=== PATIENT | male | born 1960 | race Caucasian/White ===

== ENCOUNTER 2018-02-13 15:46 | Emergency (ER) | payer OTHER ==
[2018-02-13 16:09] VITALS: BP 172/103
[2018-02-13] MEDS ORDERED: Cephalexin 500 MG Cap PO ONE (17:32)
--- NOTE | 2018-02-13 17:40 | EDM.PDOC ---
ED HPI GENERAL MEDICAL PROBLEM - General Chief Complaint: Upper Extremity Injury/Pain Stated Complaint: LEFT MIDDLE FINGER INJURY Time Seen by Provider: 02/13/18 16:15 Source of Information: Reports: Patient History Limitations: Reports: No Limitations - History of Present Illness INITIAL COMMENTS - FREE TEXT/NARRATIVE: Patient is a 57 year old male who presents to the E.D. complaining pain to the distal phalanx of the left third finger. Patient was cutting materials on a miter saw when the product he was holding rolled causing his finger to hit the back of the saw area. States this happened two days ago. Attempted to evacuate the blood from under the nail with a hot needle with no luck. Bruising has been noted to the affected area. Pain with palpation noted. He has previous injury to the tip of the affected finger causing what appears to be a mallet finger. This is unchanged. Otherwise he offers no additional complaints. Left 3-Middle finger Pain Score (Numeric/FACES): 5 - Related Data Allergies Allergy/AdvReac Type Severity Reaction Status Date / Time ibuprofen [From Motrin] Allergy Hives Verified 02/13/18 17:49 levofloxacin [From Levaquin] AdvReac Shaking Verified 02/14/18 11:40 Home Meds: Home Meds Cider Vinegar [Apple Cider Vinegar] 1,000 mg PO DAILY 12/29/14 [History] Hydrochlorothiazide 25 mg PO DAILY 12/29/14 [History] Lisinopril 40 mg PO DAILY 12/29/14 [History] Albuterol [Proventil HFA] 2 puff INH Q4H PRN #1 inhaler 12/30/14 [Rx] Past Medical History Cardiovascular History: Reports: Hypertension Respiratory History: Reports: Other (See Below) Other Respiratory History: reactive airway Social & Family History - Family History Family Medical History: Noncontributory - Tobacco Use Smoking Status *Q: Never Smoker - Recreational Drug Use Recreational Drug Use: No Review of Systems - Review of Systems Review Of Systems: ROS reveals no pertinent complaints other than HPI. ED EXAM, GENERAL - Physical Exam Exam: See Below Exam Limited By: No Limitations General Appearance: Alert, WD/WN, No Apparent Distress Eye Exam: Bilateral Eye: PERRL Ears: Hearing Grossly Normal Nose: Normal Inspection Throat/Mouth: Normal Voice, No Airway Compromise Head: Atraumatic, Normocephalic Neck: Normal Inspection, Supple Respiratory/Chest: No Respiratory Distress, No Accessory Muscle Use Cardiovascular: Normal Peripheral Pulses, Regular Rate, Rhythm Peripheral Pulses: 4+: Radial (L) Neurological: Alert, Oriented, CN II-XII Intact, Normal Cognition, No Motor/ Sensory Deficits Psychiatric: Normal Affect, Normal Mood Skin Exam: Warm, Dry, Intact, Ecchymosis (to the distal phalanx of the left 3rd finger. hematoma under the nail bed. ) Course - Vital Signs Last Recorded V/S: Last Vital Signs Temp 98.4 F 02/13/18 16:06 Pulse 72 02/13/18 16:06 Resp 16 02/13/18 16:06 BP 172/103 H 02/13/18 16:06 Pulse Ox 97 02/13/18 16:06 - Orders/Labs/Meds Meds: Medications Discontinued Medications Generic Name Dose Route Start Last Admin Trade Name Freq PRN Reason Stop Dose Admin Cephalexin 500 mg 02/13/18 17:32 02/13/18 17:48 Keflex PO 02/13/18 17:33 500 mg ONETIME ONE Administration - Re-Assessments/Exams Free Text/Narrative Re-Assessment/Exam: On x-ray patient has a fracture to the distal phalanx with no malalignment. Fracture is under the nailbed. Patient did report attempting to evacuate the blood underneath the nailbed with a hot needle. Thus we'll treat the patient for an open fracture. Keflex as ordered 500 mg by mouth. Splint applied per nursing staff. Will discharge patient home with instructions as documented. Departure - Departure Time of Disposition: 17:40 Disposition: Home, Self-Care 01 Condition: Good Clinical Impression: Phalanx, distal fracture of finger Qualifiers: Encounter type: initial encounter Finger: middle finger Fracture type: open Fracture alignment: nondisplaced Laterality: left Qualified Code(s): S62.663B - Nondisplaced fracture of distal phalanx of left middle finger, initial encounter for open fracture - Discharge Information Instructions: Finger Fracture, [id number], Cast or Splint Care, Adult Referrals: Anel Hendrix MD [Primary Care Provider] - Forms: ED Department Discharge Additional Instructions: You have a open fracture to the affected finger. Take the full course of the keflex as prescribed. keep splint in place for the next 6 wks. Followup with orthopedic surgeon in the next 1 to 2 wks for reevaluation. Take ibuprofen and tylenol in alternating fashion for pain. Apply ice to the affected area as needed throughout the day for pain. Elevate when able to reduce any swelling and pain. Refrain from any activities that cause worsening pain. Return to the E.D. if you develop any new or worsening symptoms.
--- NOTE | 2018-02-14 10:10 | CR ---
Left third finger: Four views centered to the left third finger were obtained. Comparison: No previous exam. Very minimal fracture is noted within the tuft of the distal phalanx of the third finger. Soft tissue swelling is seen. No additional bony abnormality is noted. Metallic foreign body is projected within the soft tissues between the first and second digit. Impression: 1. Minimal tuft fracture as noted above. 2. Soft tissue swelling. 3. Small metallic foreign body which is most likely chronic. Diagnostic code #3
== END 2018-02-13 18:00 | disposition home or self-care (01) ==
LOC: JD.ED 15:46
DX: S62.663B Nondisplaced fracture of distal phalanx of left middle finger, initial encounter for open fracture (principal); I10 Essential (primary) hypertension; Z88.6 Allergy status to analgesic agent; Z88.1 Allergy status to other antibiotic agents; Z79.899 Other long term (current) drug therapy; W27.0XXA Contact with workbench tool, initial encounter
CPT/HCPCS: 73140; 99283; A9270

== ENCOUNTER 2019-11-13 10:18 | Emergency (ER) | payer BC, OTHER ==
[2019-11-13 10:32] VITALS: BP 188/113; PULSE 115
--- NOTE | 2019-11-13 11:58 | EDM.PDOC ---
ED HPI GENERAL MEDICAL PROBLEM - General Chief Complaint: Respiratory Problem Stated Complaint: HIGH BP Time Seen by Provider: 11/13/19 11:04 Source of Information: Reports: Patient, Family (, [id number]) History Limitations: Reports: No Limitations - History of Present Illness INITIAL COMMENTS - FREE TEXT/NARRATIVE: Mr. Galvan is a very pleasant 59-year-old man with a past medical history significant for obesity, untreated prediabetes, hypertension, dyslipidemia, and an essential tremor, who now presents to the ED with a concern about evaded blood pressure in the setting of a cough. He states that he has not been feeling well for the past couple of weeks, and believes that it may be caused by his elevated blood pressure. He has been checking his blood pressure numerous times per day - at least 5 or 6 -and all of them have been elevated. He states that he has a chronic cough, usually nonproductive, however, it has been considerably worse than usual for the past 2 weeks, when it became productive of greenish/yellowish sputum. He has had wheezing. He has noticed that both his cough and wheezing are worse if he is supine, therefore he has had to sleep sitting up. He states that he was seen by Samantha Cheung NP, at the walk-in clinic on Tuesday , 11/05/2019. He states that blood work and a chest x-ray were performed, and that he was told that all were okay. He does not know why, but he was prescribed doxycycline BID that he took until Tuesday evening, 11/10/2019, at which time he stopped it, because it was making him sick to his stomach. He was also seen by his PCP on , 11/08/2019. He states that no tests were performed, but that his blood pressure medication was increased. He was also started on Topamax, a new medication for his essential tremor, but that he discontinued that on 11/10/2019, as well, also because of nausea and vomiting. Patient also notes that he has had a sore under his tongue for the past 2 days, along with a swollen gland. While the patient's BP has still been elevated, he acknowledges that his cough appears to be reduced, now approaching normal for him. Here in the ED, the patient's initial BP was found to be elevated at 188/113, along with tachycardia of 115, and a low-grade fever of 100.9. His oxygen saturation is 97% on room air. The patient's PCP is Dr. Anel Jeter. He did not receive an influenza vaccine this season, and declined an offer to receive one here today. - Related Data Allergies Allergy/AdvReac Type Severity Reaction Status Date / Time ibuprofen [From Motrin] Allergy Hives Verified 11/13/19 10:32 levofloxacin [From Levaquin] AdvReac Shaking Verified 11/13/19 10:32 Home Meds: Home Meds Cider Vinegar [Apple Cider Vinegar] 1,000 mg PO DAILY 12/29/14 [History] Lisinopril 40 mg PO DAILY 12/29/14 [History] hydroCHLOROthiazide [Hydrochlorothiazide] 25 mg PO DAILY 12/29/14 [History] Albuterol [Proventil HFA] 2 puff INH Q4H PRN #1 inhaler 12/30/14 [Rx] Past Medical History Cardiovascular History: Reports: High Cholesterol, Hypertension Neurological History: Reports: Other (See Below) (Essential tremor) Endocrine/Metabolic History: Reports: Obesity/BMI 30+, Other (See Below) ( Prediabetes) - Past Surgical History HEENT Surgical History: Reports: Oral Surgery (wisdom teeth extraction) Social & Family History - Family History Family Medical History: Noncontributory - Tobacco Use Smoking Status *Q: Former Smoker Years of Tobacco use: 21 Packs/Tins Daily: 2.5 Month/Year Tobacco Last Used: Quit 1993 Second Hand Smoke Exposure: No - Alcohol Use Days Per Week of Alcohol Use: 7 Number of Drinks Per Day: 7 Total Drinks Per Week: 49 Alcohol Use Frequency: Daily (occasionally to excess) - Recreational Drug Use Recreational Drug Use: Yes Drug Use in Last 12 Months: Yes Recreational Drug Type: Reports: Marijuana/Hashish (smokes daily) - Living Situation & Occupation Living situation: Reports: , with Spouse 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 Respiratory: Reports: Cough (chronic, of unknown cause) ED EXAM, GENERAL - Physical Exam Exam: See Below Exam Limited By: No Limitations General Appearance: Alert, WD/WN, No Apparent Distress Eye Exam: Bilateral Eye: EOMI, Normal Inspection Ears: Normal External Exam, Normal Canal, Hearing Grossly Normal, Normal TMs Nose: Normal Inspection, No Blood, Other (Mild bilateral nasal mucosal edema) Throat/Mouth: Normal Inspection, Normal Lips, Normal Teeth, Normal Gums, Normal Oropharynx, Normal Voice, No Airway Compromise Head: Atraumatic, Normocephalic Neck: Normal Inspection, Supple, Non-Tender, Full Range of Motion. No: Lymphadenopathy (L), Lymphadenopathy (R) Respiratory/Chest: No Respiratory Distress, Lungs Clear, No Accessory Muscle Use , Decreased Breath Sounds (mild). No: Crackles, Rhonchi, Wheezing, Stridor, Prolonged Expiration Cardiovascular: Normal Peripheral Pulses, Regular Rate, Rhythm, No Edema, No Gallop, No JVD, No Murmur, No Rub Peripheral Pulses: 4+: Radial (L), Radial (R) GI/Abdominal: Normal Bowel Sounds, Soft, Non-Tender, No Organomegaly, No Distention, No Abnormal Bruit, No Mass (Male) Exam: Deferred Rectal (Males) Exam: Deferred Back Exam: Normal Inspection, Full Range of Motion, NT Extremities: Normal Inspection, Normal Range of Motion, No Pedal Edema, Normal Capillary Refill Neurological: Alert, Oriented, Normal Cognition, No Motor/Sensory Deficits Psychiatric: Normal Affect Skin Exam: Warm, Dry, Intact, Normal Color, No Rash EKG INTERPRETATION EKG Date: 11/13/19 Time: 10:52 Rhythm: NSR Rate (Beats/Min): 89 [place]: LAD-Left [place] Deviation (likely due to LAFB) P-Wave: Present QRS: Normal (Late transition) ST-T: Normal QT: Prolonged (QTc 490 ms) Comparison: NA - No Prior EKG Course - Vital Signs Last Recorded V/S: Last Vital Signs Temp 38.3 C H 11/13/19 10:30 Pulse 115 H 11/13/19 10:30 Resp 17 11/13/19 10:30 BP 188/113 H 11/13/19 10:30 Pulse Ox 97 11/13/19 10:30 - Orders/Labs/Meds Orders: Active Orders 24 hr Category Date Time Status EKG Documentation Completion [RC] ASDIRECTED Care 11/13/19 10:36 Active CULTURE BLOOD [BC] Stat Lab 11/13/19 10:42 Received CULTURE BLOOD [BC] Stat Lab 11/13/19 10:52 Received EKG 12 Lead [EK] Stat Ther 11/13/19 10:35 Ordered Labs: Laboratory Tests 11/13/19 11/13/19 11/13/19 Range/Units 10:42 10:42 10:42 WBC 7.23 (4.23-9.07) K/mm3 RBC 4.90 (4.63-6.08) M/mm3 Hgb 16.5 (13.7-17.5) gm/dl Hct 45.8 (40.1-51.0) % MCV 93.5 H (79.0-92.2) fl MCH 33.7 H (25.7-32.2) pg MCHC 36.0 H (32.2-35.5) g/dl RDW Std Deviation 42.4 (35.1-43.9) fL Plt Count 210 (163-337) K/mm3 MPV 10.5 (9.4-12.3) fl Neut % (Auto) 59.1 (34.0-67.9) % Lymph % (Auto) 27.7 (21.8-53.1) % [place] % (Auto) 9.1 (5.3-12.2) % Eos % (Auto) 3.5 (0.8-7.0) Baso % (Auto) 0.3 (0.1-1.2) % Neut # (Auto) 4.28 (1.78-5.38) K/mm3 Lymph # (Auto) 2.00 (1.32-3.57) K/mm3 [place] # (Auto) 0.66 (0.30-0.82) K/mm3 Eos # (Auto) 0.25 (0.04-0.54) K/mm3 Baso # (Auto) 0.02 (0.01-0.08) K/mm3 PT (9.7-12.0) SECONDS INR Sodium 138 (136-145) mEq/L Potassium 2.6 L (3.5-5.1) mEq/L Chloride 96 L (98-107) mEq/L Carbon Dioxide 32 (21-32) mEq/L Anion Gap 12.6 (5-15) BUN 10 (7-18) mg/dL Creatinine 1.0 (0.7-1.3) mg/dL Est Cr Clr Drug Dosing 83.14 mL/min Estimated GFR (MDRD) > 60 (>60) mL/min BUN/Creatinine Ratio 10.0 L (14-18) Glucose 131 H (74-106) mg/dL Lactic Acid 2.4 H* (0.4-2.0) mmol/L Calcium 9.4 (8.5-10.1) mg/dL Total Bilirubin 1.1 H (0.2-1.0) mg/dL AST 48 H (15-37) U/L ALT 65 H (16-63) U/L Alkaline Phosphatase 59 (46-116) U/L C-Reactive Protein 0.8 (<1.0) mg/dL Total Protein 7.8 (6.4-8.2) g/dl Albumin 3.6 (3.4-5.0) g/dl Globulin 4.2 gm/dL Albumin/Globulin Ratio 0.9 L (1-2) 02/25/20 Range/Units 10:42 WBC (4.23-9.07) K/mm3 RBC (4.63-6.08) M/mm3 Hgb (13.7-17.5) gm/dl Hct (40.1-51.0) % MCV (79.0-92.2) fl MCH (25.7-32.2) pg MCHC (32.2-35.5) g/dl RDW Std Deviation (35.1-43.9) fL Plt Count (163-337) K/mm3 MPV (9.4-12.3) fl Neut % (Auto) (34.0-67.9) % Lymph % (Auto) (21.8-53.1) % [place] % (Auto) (5.3-12.2) % Eos % (Auto) (0.8-7.0) Baso % (Auto) (0.1-1.2) % Neut # (Auto) (1.78-5.38) K/mm3 Lymph # (Auto) (1.32-3.57) K/mm3 [place] # (Auto) (0.30-0.82) K/mm3 Eos # (Auto) (0.04-0.54) K/mm3 Baso # (Auto) (0.01-0.08) K/mm3 PT 10.9 (9.7-12.0) SECONDS INR 1.00 Sodium (136-145) mEq/L Potassium (3.5-5.1) mEq/L Chloride (98-107) mEq/L Carbon Dioxide (21-32) mEq/L Anion Gap (5-15) BUN (7-18) mg/dL Creatinine (0.7-1.3) mg/dL Est Cr Clr Drug Dosing mL/min Estimated GFR (MDRD) (>60) mL/min BUN/Creatinine Ratio (14-18) Glucose (74-106) mg/dL Lactic Acid (0.4-2.0) mmol/L Calcium (8.5-10.1) mg/dL Total Bilirubin (0.2-1.0) mg/dL AST (15-37) U/L ALT (16-63) U/L Alkaline Phosphatase (46-116) U/L C-Reactive Protein (<1.0) mg/dL Total Protein (6.4-8.2) g/dl Albumin (3.4-5.0) g/dl Globulin gm/dL Albumin/Globulin Ratio (1-2) Meds: Medications Discontinued Medications Generic Name Dose Route Start Last Admin Trade Name Freq PRN Reason Stop Dose Admin Potassium Chloride 40 meq 11/13/19 12:49 11/13/19 13:14 Klor-Con M20 PO 11/13/19 12:50 40 meq ONETIME ONE Administration - Re-Assessments/Exams Free Text/Narrative Re-Assessment/Exam: 11/13/19 11:42 Clinically, the patient has resolving bronchitis, as evidenced by 2 weeks of a persistent cough productive of greenish/yellowish sputum and wheezing, both made worse when supine. Two-view chest radiograph appears to be grossly normal. The cardiac silhouette is within normal limits. No pulmonary vascular congestion. No pleural effusions. No focal infiltrate. No pneumothorax. Formal read per the Radiologist pending. 11/13/19 12:49 The patient's CBC is unremarkable. His CMP is remarkable for a potassium depressed at 2.6, blood glucose elevated at 131, a total bilirubin slightly elevated at 1.1, and an AST/ALT slightly elevated at 48/65, with the remainder of his CMP being unremarkable. His CRP is within normal limits at 0.8. His lactic acid level is elevated at 2.4. His INR is within normal limits. His influenza swab returned negative. Based on the above, I have ordered 40 mEq of oral KCl. The patient's elevated lactic acid level reflects hyperlipemia, not lactic acidosis, as his bicarbonate is within normal limits. His elevated level is most likely due to frequent albuterol use, which is also likely responsible for his hypokalemia. The patient's elevated blood glucose is consistent with his previous diagnosis of prediabetes. 11/13/19 13:03 Test results discussed with the patient and his (his [id number] stepped out). I am recommending that the patient stop using his albuterol and Atrovent MDIs, that he throw any remaining doxycycline into the trash, that he talk to his PCP about getting PFTs in order to ascertain a specific diagnosis as to his chronic cough, and that he go to the [place] [employer] website to learn about a low glycemic index diet. 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 Work-up in the ER included blood work, 2 sets of blood cultures, an influenza swab, a chest x-ray, and an ECG. Your work-up found your potassium to be low at 2.6. You were given oral replacement potassium in the ER. Your work-up further found your blood sugar to be elevated at 131, and your lactic acid to be elevated at 2.4. The remainder of your work-up was unremarkable. Your low potassium and elevated lactic acid level are most likely due to your frequent use of albuterol. Your elevated blood sugar is due to your prediabetes. Going forward, we recommend that: 1. You stop using the albuterol and Atrovent MDIs. 2. You throw any remaining doxycycline into the trash. Do not flush it down the toilet or down the drain. 3. You talk to your PCP, Dr. Mayo, about getting pulmonary function tests ( PFTs) to definitively ascertain the cause of your chronic cough, then treat as indicated. 4. That you go to the [place] [employer] website, and click on the section "Nutrition" to learn about a diabetic diet, also known as a low glycemic index diet. If any other problems, please do not hesitate to return to the ER. Sepsis Event Note - Evaluation Sepsis Screening Result: Possible Sepsis Risk - Focused Exam Date Exam was Performed: 11/14/19 Time Exam was Performed: 09:03 - My Orders Last 24 Hours: My Active Orders 11/13/19 10:35 EKG 12 Lead [EK] Stat 11/13/19 10:36 EKG Documentation Completion [RC] ASDIRECTED 11/13/19 10:42 CULTURE BLOOD [BC] Stat 11/13/19 10:52 CULTURE BLOOD [BC] Stat - Assessment/Plan Last 24 Hours: My Active Orders 11/13/19 10:35 EKG 12 Lead [EK] Stat 11/13/19 10:36 EKG Documentation Completion [RC] ASDIRECTED 11/13/19 10:42 CULTURE BLOOD [BC] Stat 11/13/19 10:52 CULTURE BLOOD [BC] Stat
[2019-11-13] MEDS ORDERED: Potassium Chloride 20 MEQ Tab.ER PO ONE (12:49)
--- NOTE | 2019-11-14 08:56 | CR ---
Chest: Two views of the chest were obtained. Comparison: Prior chest x-ray of 12/29/14. Heart size and mediastinum are normal. Lungs are clear with no acute parenchymal change. Bony structures appear within normal limits for the patient's age. Impression: 1. Nothing acute is seen on two-view chest x-ray. Diagnostic code #1 This report was dictated in [place] Standard Time
== END 2019-11-13 13:20 | disposition home or self-care (01) ==
LOC: JD.ED 10:18
DX: I44.4 Left anterior fascicular block (principal); J20.8 Acute bronchitis due to other specified organisms; R94.31 Abnormal electrocardiogram [ECG] [EKG]; I10 Essential (primary) hypertension; Z88.1 Allergy status to other antibiotic agents; Z88.6 Allergy status to analgesic agent; Z79.899 Other long term (current) drug therapy
CPT/HCPCS: 36415; 71046; 80053; 83605; 85025; 85610; 86140; 87040; 87804; 93005; 99284; A9270; 93010

== ENCOUNTER 2023-02-19 07:58 | Emergency (ER) | payer BC, MEDICAID ==
[2023-02-19 09:00] LABS: BASOPHILS ABSOLUTE AUTO 0.01 K/mm3 (0.01-0.08); BASOPHILS PERCENT AUTO 0.1 % (0.1-1.2); EOSINOPHILS PERCENT AUTO 0 (0.8-7.0); HEMATOCRIT 40.8 % (40.1-51.0); IMMATURE GRAN ABSOLUTE AUTO 0.07 K/mm3 (0.00-0.10); IMMATURE GRAN PERCENT AUTO 0.6 % (<=1.0); LYMPHOCYTES ABSOLUTE AUTO 1.06 K/mm3 (1.32-3.57); LYMPHOCYTES PERCENT AUTO 8.7 % (21.8-53.1); MEAN CORPUSCULAR HGB CONC 34.3 g/dl (32.2-35.5); MEAN CORPUSCULAR VOLUME 96.2 fl (79.0-92.2); MEAN PLATELET VOLUME 10.7 fl (9.4-12.3); MONOCYTES ABSOLUTE AUTO 0.84 K/mm3 (0.30-0.82); MONOCYTES PERCENT AUTO 6.9 % (5.3-12.2); NEUTROPHILS ABSOLUTE AUTO 10.16 K/mm3 (1.78-5.38); NEUTROPHILS PERCENT AUTO 83.7 % (34.0-67.9); PLATELET COUNT,PLT 277 K/mm3 (163-337); RED BLOOD CELL COUNT 4.24 M/mm3 (4.63-6.08); WHITE BLOOD CELL COUNT,WBC 12.14 K/mm3 (4.23-9.07)
[2023-02-19] MEDS ORDERED: Sodium Chloride 0.9% 1,000 ML IV ONE ×2 (09:11→12:00)
[2023-02-19 09:14] LABS: D-DIMER QUANTITATIVE < 0.19 mg/L (0.19-0.50); PTT,PARTIAL THROMBOPLSTIN TIME 26.7 SECONDS (21.7-31.4)
[2023-02-19 09:15] LABS: INR 0.96; PROTHROMBIN TIME 10.3 SECONDS (9.7-12.0)
[2023-02-19 09:17] LABS: BARBITURATE SCREEN,URINE NEGATIVE (CUTOFF=200); BENZODIAZEPINES SCREEN,URINE NEGATIVE (CUTOFF=150); BUPRENORPHINE SCREEN,URINE NEGATIVE (CUTOFF=10); METHADONE SCREEN, URINE NEGATIVE (CUT0FF=200); METHAMPHETAMINES SCREEN, URINE NEGATIVE (CUTOFF=500); OXYCODONE SCREEN,URINE NEGATIVE (CUT0FF=100); PROPOXYPHENE SCREEN,URINE NEGATIVE (CUTOFF=300); THC SCREEN,URINE 20 NG/ML PRESUMPTIVE POSITIVE (CUTOFF=50)
[2023-02-19 09:18] LABS: ALBUMIN 4.1 g/dl (3.4-5.0); ANION GAP 14.7 (5-15); BILIRUBIN TOTAL 0.4 mg/dL (0.2-1.0); BUN/CREATININE RATIO 15.7 (14-18); CALCIUM 9.9 mg/dL (8.5-10.1); CREATININE 1.4 mg/dL (0.7-1.3); EST CRCL DRUG DOSING (CG) 57.21 mL/min; PROTEIN TOTAL,TP 8.4 g/dl (6.4-8.2)
[2023-02-19 09:19] LABS: POTASSIUM,K 4.7 mEq/L (3.5-5.1)
[2023-02-19 09:38] LABS: AMPHETAMINES SCREEN, URINE NEGATIVE (CUTOFF=500)
[2023-02-19 09:49] LABS: CORONAVIRUS COVID-19 NAA NEGATIVE (NEGATIVE); INFLUENZA A NAA NEGATIVE (NEGATIVE); RESPIRATORY SYNCYTIAL VIR NAA NEGATIVE (NEGATIVE)
[2023-02-19] MEDS ORDERED: Ondansetron 4 MG/2 ML SDV IVPUSH ONE (10:57)
[2023-02-19 11:27] LABS: APPEARANCE,URINE CLEAR (Clear); BILIRUBIN,URINE NEGATIVE (Negative); COLOR,URINE YELLOW (Yellow); GLUCOSE,URINE TRACE (Negative); KETONES,URINE TRACE (Negative); LEUKOCYTE ESTERASE,URINE NEGATIVE (Negative); NITRITE,URINE NEGATIVE (Negative); OCCULT BLOOD,URINE NEGATIVE (Negative); PH,URINE 5.5 (5.0-8.0); PROTEIN,URINE 2+ (Negative); UROBILINOGEN,URINE 0.2 (0.2-1.0)
[2023-02-19 11:56] LABS: BACTERIA,URINE MODERATE /hpf (FEW); HYALINE CASTS,URINE 20-30 /lpf (0-5); MUCUS,URINE MODERATE /hpf (FEW); RBC,URINE 0-5 /hpf (0-5); SQUAMOUS EPITHELIAL CELLS,UR 0-5 /hpf (0-5); WBC,URINE 0-5 /hpf (0-5)
[2023-02-19] MEDS ORDERED: Pantoprazole 80 MG in Sodium Chloride 0.9% 100 ML IV ONE (12:01)
[2023-02-19 15:46] VITALS: BP 187/101; PULSE 112
== END 2023-02-19 15:51 | disposition home or self-care (01) ==
LOC: JD.ED 07:58
DX: I25.10 Atherosclerotic heart disease of native coronary artery without angina pectoris (principal); E66.9 Obesity, unspecified; R00.0 Tachycardia, unspecified; Z68.35 Body mass index [BMI] 35.0-35.9, adult; I11.0 Hypertensive heart disease with heart failure; I50.9 Heart failure, unspecified; E78.00 Pure hypercholesterolemia, unspecified; J45.909 Unspecified asthma, uncomplicated; Z87.891 Personal history of nicotine dependence; Z88.6 Allergy status to analgesic agent; Z88.1 Allergy status to other antibiotic agents; Z79.899 Other long term (current) drug therapy; Z20.822 Contact with and (suspected) exposure to COVID-19
CPT/HCPCS: 0241U; 36415; 71250; 74176; 80053; 80306; 81001; 82150; 82550; 83690; 83735; 83880; 84484; 85025; 85379; 85610; 85730; 87040; 93005; 96361; 96365; 96375; 99284; C9113; J2405; J3490; J7030

== ENCOUNTER 2024-05-25 12:13 | Emergency (ER) | payer MEDICAID, OTHER ==
[2024-05-25 13:23] LABS: CORONAVIRUS COVID-19 NAA NEGATIVE (NEGATIVE); INFLUENZA A NAA NEGATIVE (NEGATIVE); RESPIRATORY SYNCYTIAL VIR NAA NEGATIVE (NEGATIVE)
[2024-05-25 14:17] LABS: BASOPHILS PERCENT AUTO 0.3 % (0.0-1.0); EOSINOPHILS PERCENT AUTO 0.3 % (0.0-6.0); HEMOGLOBIN 15.6 gm/dl (14.0-18.0); IMMATURE GRAN ABSOLUTE AUTO 0.06 K/mm3 (0.00-0.05); IMMATURE GRAN PERCENT AUTO 0.5 % (0.0-0.4); LYMPHOCYTES PERCENT AUTO 8.9 % (24.0-44.0); MEAN CORPUSCULAR HEMOGLOBIN 32.9 pg (28.0-32.0); MEAN CORPUSCULAR HGB CONC 34.7 g/dl (32.0-36.0); MEAN CORPUSCULAR VOLUME 94.9 fl (83.0-99.0); MEAN PLATELET VOLUME 9.9 fl (9.4-12.4); MONOCYTES ABSOLUTE AUTO 0.6 K/mm3 (0.0-0.8); MONOCYTES PERCENT AUTO 5.6 % (0.0-8.0); NEUTROPHILS ABSOLUTE AUTO 9.7 K/mm3 (1.8-7.7); NEUTROPHILS PERCENT AUTO 84.4 % (41.0-71.0); PLATELET COUNT,PLT 219 K/mm3 (150-400); RED BLOOD CELL COUNT 4.74 M/mm3 (4.52-5.90); WHITE BLOOD CELL COUNT,WBC 11.45 K/mm3 (3.9-11.3)
[2024-05-25 14:48] LABS: A/G RATIO 1.1 (1-2); ALBUMIN 4.1 g/dl (3.4-5.0); ANION GAP 14.6 (5-15); BILIRUBIN TOTAL 0.5 mg/dL (0.2-1.0); BUN/CREATININE RATIO 17.8 (14-18); CALCIUM 9.4 mg/dL (8.5-10.1); CREATININE 0.9 mg/dL (0.7-1.3); EST CRCL DRUG DOSING (CG) 78.54 mL/min; MAGNESIUM 1.7 mg/dL (1.8-2.4); POTASSIUM,K 3.6 mEq/L (3.5-5.1); PROTEIN TOTAL,TP 7.9 g/dl (6.4-8.2)
[2024-05-25 14:50] LABS: LACTIC ACID 1.7 mmol/L (0.4-2.0)
[2024-05-25] MEDS ORDERED: Sodium Chloride 0.9% 1,000 ML IV SCH ×2 (15:45)
[2024-05-25] MEDS: Iopamidol 612 MG/ML 100 ML Bottle IVPUSH ONE (15:52)
[2024-05-25] MEDS: Sodium Chloride 0.9% 10 ML Syringe FLUSH PRN (15:53)
[2024-05-25] MEDS: Sodium Chloride 0.9% 1,000 ML IV SCH (17:01)
[2024-05-25] MEDS: Ondansetron 4 MG/2 ML SDV IVPUSH ONE ×2 (17:01→19:18)
[2024-05-25] MEDS: Doxycycline Monohydrate 100 MG Cap PO ONE (19:18)
[2024-05-26 02:50] VITALS: BP 160/99; PULSE 100
== END 2024-05-25 19:20 | disposition home or self-care (01) ==
LOC: JD.ED 12:13
DX: R11.2 Nausea with vomiting, unspecified (principal); R05.9 Cough, unspecified; R68.83 Chills (without fever); I11.0 Hypertensive heart disease with heart failure; I50.9 Heart failure, unspecified; E78.00 Pure hypercholesterolemia, unspecified; E66.9 Obesity, unspecified; Z68.41 Body mass index [BMI] 40.0-44.9, adult; Z88.8 Allergy status to other drugs, medicaments and biological substances; Z79.899 Other long term (current) drug therapy
CPT/HCPCS: 0241U; 36415; 71045; 74177; 80053; 83605; 83690; 83735; 84484; 85025; 96361; 96374; 96376; 99284; A9270; J2405; J3490; J7030; Q9967; 99283

== ENCOUNTER 2025-04-16 06:56 | Day surgery (SDC) | payer MEDICARE ==
[~2025-04-16 06:56] MED LIST: Sodium Chloride 0.9% 10 ML Syringe FLUSH PRN; Sodium Chloride 0.9% 10 ML Syringe FLUSH SCH
[2025-04-16] MEDS: Lactated Ringers 1,000 ML IV SCH (07:20)
[2025-04-16] MEDS ORDERED: propofoL 500 MG/50 ML 50 ML ONE (07:55)
[2025-04-16] MEDS ORDERED: Propofol 200 MG/20 ML SDV ONE (08:33)
[2025-04-16 11:44] VITALS: BP 142/82; PULSE 78
== END 2025-04-16 09:50 | disposition home or self-care (01) ==
LOC: JD.SDS 06:56
PROVIDERS: ATTEND Surgery
DX: Z12.11 Encounter for screening for malignant neoplasm of colon (principal); K21.00 Gastro-esophageal reflux disease with esophagitis, without bleeding; K57.30 Diverticulosis of large intestine without perforation or abscess without bleeding; K64.8 Other hemorrhoids; K60.2 Anal fissure, unspecified; K29.70 Gastritis, unspecified, without bleeding; I10 Essential (primary) hypertension; Z88.8 Allergy status to other drugs, medicaments and biological substances; Z79.82 Long term (current) use of aspirin; Z79.899 Other long term (current) drug therapy; Z87.891 Personal history of nicotine dependence
CPT/HCPCS: 43239; 45385; C9777; J2003; J2704; J7120; 00813; 43499; 88305